=== PATIENT | male | born 1995 | race Caucasian/White ===

== ENCOUNTER 2022-09-12 11:59 | Emergency (ER) | payer BC, SELFPAY ==
--- NOTE | ~2022-09-12 | XR_ITS ---
EXAMINATION: XR HAND, RIGHT CLINICAL INFORMATION: Laceration COMPARISON: None TECHNIQUE: PA, lateral, and oblique views of the right hand. FINDINGS: The bones and soft tissues are normal. No fracture. Alignment is anatomic. Joint spaces are maintained. No erosions or soft tissue calcifications. XR/XR hand RT 2V IMPRESSION: No fracture. No radiopaque foreign body.
[2022-09-12 12:01] VITALS: BP 117/50; PULSE 100; RESP 20; TEMP 36.7; O2SAT 98; BMI 19.8
--- NOTE | 2022-09-12 12:53 | ED.WOUNDLAC ---
HPI - Wound/Laceration General Chief Complaint: Wound/Laceration Stated Complaint: R thumb lac 09/12/22 Time Seen by Provider: 09/12/22 12:50 Source: patient Mode of arrival: ambulatory Limitations: no limitations History of Present Illness HPI narrative: 27-year-old male [id number] here with laceration to the right thumb from a knife. Patient reports he was trying to open some plastic with his hand slipped causing a laceration to the right thumb. Patient has a history of insulin-dependent diabetes. Patient is right-hand dominant. He reports some pain to the site. No weakness, numbness or tingling reported. Tetanus is up-to-date Related Data Allergies Allergy/AdvReac Type Severity Reaction Status Date / Time Unable to Assess Allergy Verified 09/12/22 13:06 Review of Systems Review of Systems: Yes all other systems are reviewed and are negative Constitutional: Constitutional: Reports no additional constitutional complaints, Denies body ache(s), Denies chills, Denies fever(s), Denies headache(s) and Denies weakness Eyes: Eyes: Reports no additional eye complaints and Denies change in vision ENT: Reports system reviewed and no additional complaints, except as documented, Denies dizziness, Denies headache(s), Denies nasal congestion, Denies nasal discharge and Denies neck pain Cardiovascular: Cardiovascular: Reports no additional cardiovascular complaints, Denies chest pain, Denies leg edema and Denies dyspnea Respiratory: Respiratory: Reports no additional respiratory complaints, Denies cough and Denies dyspnea Gastrointestinal: Gastrointestinal: Reports no additional gastrointestinal complaints, Denies abdominal pain, Denies diarrhea, Denies nausea and Denies vomiting Genitourinary: Genitourinary: Denies urinary incontinence Musculoskeletal: Musculoskeletal: Reports no additional musculoskeletal complaints, Denies back pain, Denies arthralgias, Denies joint swelling, Denies neck pain, Denies numbness and Denies tingling Integumentary/Breasts: Skin/Breast: Reports system reviewed and no additional complaints, except as docu and Denies rash Comments: +laceration Neurologic: Reports system reviewed and no additional complaints, except as documented, Denies Abnormal speech present, Denies dizziness, Denies headache(s), Denies numbness, Denies tingling and Denies weakness PMF Past Medical History Attestation statement: The following information was validated with the patient. Source: old records reviewed and nursing notes reviewed Social History Social History Advance Directives: No Advance Directives Information Provided: Yes Physical Exam Vital Signs: Vital Signs: Last Vital Signs Temp 98.1 F 09/12/22 12:01 Pulse 100 09/12/22 12:01 Resp 20 09/12/22 12:01 BP 117/50 L 09/12/22 12:01 Pulse Ox 98 09/12/22 12:01 O2 Del Method 09/12/22 12:01 BMI result Body Mass Index 19.8 Const: General: cooperative, healthy appearing, comfortable and no acute distress Orientation/consciousness: patient oriented x3 Limitations: no limitations HEENT: Head: Yes normal to inspection Ears: hearing grossly normal bilaterally General nose exam: Normal external nose present Face and sinus: Yes normal facial exam Mouth: Normal oral and palatal mucosa present Throat: Yes posterior oropharynx normal Eyes: General: appearance normal, both eyes and all related structures Pupils: Equal, round and reactive pupils present Neck: Neck: Yes normal visual inspection Chest: Chest palpation & inspection: normal inspection of the chest Resp: Effort & Inspection: normal respiratory effort Auscultation: clear to auscultation bilaterally Cardio: Rate: regular rate Rhythm: regular rhythm Peripheral pulses: Peripheral pulses 2+ throughout GI: Inspection: Yes normal to inspection Palpation (GI): Soft to palpation and nontender Auscultation: normal bowel sounds Back/Spine/Pelvis: Thoracic/Lumbar Spine: thoracic and lumbar spine normal to inspection Skin: General skin exam: no rashes or lesions noted Neuro: General: patient oriented x3, no focal motor deficits and normal sensation to monofilament Cranial nerves: Yes Equal, round and reactive pupils present Cognition (Neuro): normal cognition Speech: No Abnormal speech present Gait exam (Neuro): Normal gait present Motor exam (neuro): 5/5 motor strength present throughout Extrem: Other: At the base of the right thumb over the medial aspect there is a 3 cm laceration with active bleeding. Patient is able flex and extend the thumb with no difficulty. Neurovascular intact distally. General: Yes normal to inspection Course Course Course Narrative: X-ray shows no bony abnormality. Wound was extensively irrigated with saline and Betadine. Patient had local lidocaine applied. The wound was repaired with [facility]. Bob Martinez Medications Administered Discontinued Medications Generic Name Dose Route Start Last Admin Trade Name Biju PRN Reason Stop Dose Admin Lidocaine HCl 2 ml 09/12/22 13:06 09/12/22 14:14 Lidocaine Hcl 1 % Mpf 2 Ml Vial INFILTRATI 09/12/22 13:07 2 ml ONCE ONE Administration Lidocaine HCl 2 ml 09/12/22 13:07 09/12/22 14:14 Lidocaine Hcl 1 % Mpf 2 Ml Vial INFILTRATI 09/12/22 13:08 2 ml ONCE ONE Administration MDM - Wound/Laceration MDM Narrative Medical decision making narrative: 27-year-old male [id number] here with laceration to the right thumb from a knife. See procedure note for wound repair tetanus is up-to-date Will check x-ray to eval for bony abnormality Medical Records Attestation: I reviewed the patient's medical records. Lab Data Attestation: I reviewed the patient's lab results. Imaging Data hand x-ray: Attestation: I personally reviewed and interpreted this imaging study as follows: Radiologist's impression: Launch?Image [place] [address] XRay Report Signed Patient: Timmy Douglas MR#: [id number] : 1995 Acct:[id number] Age/Sex: 27 / M ADM Date: 09/12/22 Loc: .ED Attending Dr: Ordering Physician: Radha Mcintosh NP Date of Service: 09/12/22 Procedure(s): XR hand RT 2V Accession Number(s): [id number] cc: Radha Mcintosh NP~ EXAMINATION: XR HAND, RIGHT CLINICAL INFORMATION: Laceration? COMPARISON: None? TECHNIQUE: PA, lateral, and oblique views of the right hand. FINDINGS: The bones and soft tissues are normal. No fracture. Alignment is anatomic. Joint spaces are maintained. No erosions or soft tissue calcifications.? XR/XR hand RT 2V IMPRESSION: No fracture. ? No radiopaque foreign body. Procedures Laceration Laceration 1: Site: hand Side (If applicable): right Size (cm): 3 Description: linear Depth: simple, single layer Local Anesthetic: lidocaine 1% Amount of anesthesia used (mL): 5 Pre-repair: wound explored, irrigated extensively and deep structures intact Skin layer closed with: vicryl Size (cm): 5-0 Number of sutures: 7 Technique: simple, interrupted Discharge Plan Discharge Clinical Impression: Laceration Patient Disposition: Home, Self-Care Instructions: Finger Laceration (ED) Additional Instructions: Sutures out in 7-10 days Keep it covered today. Tomorrow remove it and wash with soap and water Referrals: Physician,Nonstaff [Primary Care Provider] - Stand Alone Forms: Work/School Release Interventions: ED Discharge Assessment Last Done: 09/12/22 14:47 Discharge Date/Time: 09/12/22 14:48
--- OUTSIDE RECORDS SUMMARY | 2022-09-12 13:10 | XMS_ITS | Continuity of Care Document ---
:1995 Author Organization [facility] Address [address] [place] [address]- Care Team Providers Name Role Phone Daphnie Sheridan MD Primary Care Physician [place] [facility] [place] 06[place]20 [facility] [address] [place] [id number] [facility] Attending Physician: Latasha Lewis Admitting Physician: AdmLatasha piper Referring Physician: Admtr, ArJodran Allergies, Adverse Reactions, Alerts Substance Reaction Severity Status NKA Active Immunizations Given and Recorded Vaccine Date Status Refusal Reason influenza virus vaccine, inactivated1 07/19/13 Given 1Result Comment: [07/19/2013] Pt tolerated procedure well. L deltoid Medications Concerta 54 mg oral tablet, extended release 1 tablet = 54 mg, By Mouth, Daily in AM, NO SUBSTITUTIONS PLEASE; medically necessary brand name only; prior Rx in error, # 30 tablet, 0 Refills, Maintenance, 05/15/15 17:11:10, ER Tablet Start Date: 05/15/15 Stop Date: 06/14/15 Status: OrderedContour Next EZ Test Strips See Instructions, # 600 each, Refills 3, Tot. Refills 3, Maintenance, IDDM. Tests blood sugar 6x/day, 90 day supply, 12/31/19 14:02:00 EST, Compound, 183.4, cm, 08/23/19 15:15:00 EDT, Height, 74.1, kg,10/18/18 15:12:00 EST, Dry Weight Start Date: 12/31/19 Status: OrderedGlucagon Emergency Kit See Instructions, PRN, # 2 each, Refills 11, Tot. Refills 11, Maintenance, Blood Glucose, IDDM. Use emergently for severe low blood sugar, 08/29/17 15:09:17, Compound Start Date: 08/29/17 Stop Date: 08/24/18 Status: Orderedglucagon recombinant 1 mg injectable powder for injection See Instructions, DX: type 1 DM administer urgently for severe hypoglycemia, # 2 each, 11 Refills, Soft Stop, 04/15/16 16:13:01, REC Injection Start Date: 04/15/16 Status: OrderedHumalog 100 u/ml subcutaneous injection See Instructions, Subcutaneous Injection, Use as directed for Diabetes mellitus type 1. (Max Dose = 100 units/day). 10 mL vials, 90 day supply, # 9 vials, 3 Refills, Maintenance, 06/06/19 11:18:59 EDT Start Date: 06/06/19 Status: OrderedInsulin Syringe, BD Ultra-Fine 0.5 cc 31 G x 8 mm (516in) See Instructions, # 100 each, Refills 5, Tot. Refills 5, Maintenance, IDDM 2 times/daily, 04/28/18 12:25:48 EDT, Compound Start Date: 04/28/18 Status: OrderedInsulin Syringe, BD Ultra-Fine 0.5 cc 31 G x 8 mm (516in) See Instructions, # 120 each, Refills 3, Tot. Refills 3, Maintenance, Use to inject with insulin up to 4 times a day in the case of pump failure, E10.9, 01/09/20 10:55:00 EDT, Compound, 183.4, cm, 08/23/19 15:15:00 EDT, Height, 74.1, kg, 10/18/18 15:1... Start Date: 01/09/20 Status: OrderedKetostix See Instructions, # 1 bottle, Refills 6, Tot. Refills 6, Maintenance, use for t1dm, if hyperglycemia>300 check urine ketones. Max 4xdaily until cleared., 12/25/14 11:39:00, Compound Start Date: 12/25/14 Status: OrderedKetostix See Instructions, # 1 bottle, Refills 11, Tot. Refills 11, Maintenance, IDDM. Hyperglycemia >300 check urine ketones. Max 4xdaily until cleared., 08/29/17 15:08:53, Compound Start Date: 08/29/17 Status: OrderedLancets See Instructions, # 450 units, Refills 4, Tot. Refills 4, Maintenance, Contour Next, tests BS up to 5 times/d, 90 days, 04/15/16 16:13:35, Compound Start Date: 04/15/16 Status: OrderedLantus 100 u/ml subcutaneous solution See Instructions, type 1 diabetes. max dose 50 units/daily., # 2 each, 5 Refills, Maintenance, 04/28/18 12:24:50 EDT Start Date: 04/28/18 Status: Orderedminimed insulin pump minimed insulin pump, See Instructions, # 1 each, Refills 0, Tot. Refills 0, Maintenance, use daily,07/12/18 16:11:34 EDT, Compound Start Date: 07/12/18 Status: Orderedsertraline 25 mg oral tablet 1 tablet = 25 mg, By Mouth, Daily, # 30 tablet, 0 Refills, Maintenance, 05/24/19 16:51:47 EDT, Tablet Start Date: 05/24/19 Status: Ordered Problem List Condition Effective Dates Status Health Status Informant Anxiety(Confirmed) Active ADHD (attention deficit hyperactivity Active disorder)(Confirmed) Depression(Confirmed) Active Diabetes mellitus(Confirmed) Active Type 1 diabetes mellitus(Confirmed) Active Social History Social History Type Response Smoking Status Never smoker; Tobacco user i n household: No entered on: 08/29/17 Sex
--- OUTSIDE RECORDS SUMMARY | 2022-09-12 13:10 | XMS_ITS | Continuity of Care Document ---
:1995 Author Organization [facility] Address [address] [place] [id number]- Care Team Providers Name Role Phone Daphnie Sheridan MD Primary Care Physician Encounter [facility] [place] Date(s): 02/02/21 - 03/22/[address] [id number] Attending Physician: Suzanne Gilbert MD Admitting Physician: Suzanne Gilbert MD Referring Physician: Daphnie Sheridan MD Allergies, Adverse Reactions, Alerts Substance Reaction Severity Status NKA Active Immunizations Given and Recorded Vaccine Date Status Refusal Reason influenza virus vaccine, inactivated1 07/19/13 Given 1Result Comment: [07/19/2013] Pt tolerated procedure well. L deltoid Medications ACCU-CHEK GUIDE TEST STRIPS ACCU-CHEK GUIDE TEST STRIPS, See Instructions, # 200 each, Refills 11, Tot. Refills 11, Maintenance,Use to monitor blood glucose levels 6x per day. E10.9, 03/19/21 10:02:00 EDT, [place] 03/11/21-03/11/22; [id number], Supply, 183.4, cm, 01/24/20 14:38:00 ED... Start Date: 03/19/21 Status: OrderedBaqsimi One Pack 3 mg nasal powder See Instructions, Use as directed, 3 mg for severe hypoglycemia., # 1 each, 6 Refills, Soft Stop, 02/18/21 13:15:00 EDT, [facility]/pharmacy #[id number], Partial fill upon patient request if the prescription is fora schedule II opioid drug., 183.4, cm, 01/24/20 1... Start Date: 02/18/21 Status: OrderedConcerta 54 mg oral tablet, extended release 1 tablet = 54 mg, By Mouth, Daily in AM, NO SUBSTITUTIONS PLEASE; medically necessary brand name only; prior Rx in error, # 30 tablet, 0 Refills, Maintenance, 05/15/15 17:11:10, ER Tablet Start Date: 05/15/15 Stop Date: 06/14/15 Status: OrderedGlucagon Emergency Kit See Instructions, PRN, # 2 each, Refills 11, Tot. Refills 11, Maintenance, Blood Glucose, Use emergently for severe low blood sugar and patient unable to treat self, E10.9, 11/27/20 8:57:00 EST, Compound, 183.4, cm, 01/24/20 14:38:00 EDT, Height Start Date: 11/27/20 Stop Date: 11/22/21 Status: OrderedHumalog 100 u/ml subcutaneous injection See Instructions, Subcutaneous Injection, Use as directed for Diabetes mellitus type 1. (Max Dose = 100 units/day). 90 day supply, # 105 mL, 3 Refills, Maintenance, 11/27/20 8:56:00 EST, [facility]/pharmacy #[id number], 183.4, cm, 01/24/20 14:38:00 EDT, Height Start Date: 11/27/20 Status: OrderedInsulin Syringe, BD Ultra-Fine 0.5 cc 31 G x 8 mm (5/16in) See Instructions, # 120 each, Refills 3, Tot. Refills 3, Maintenance, Use to inject with insulin up to 4 times a day in the case of pump failure, E10.9, 01/09/20 10:55:00 EDT, Compound, 183.4, cm, 08/23/19 15:15:00 EDT, Height, 74.1, kg, 10/18/18 15:1... Start Date: 01/09/20 Status: OrderedInsulin Syringe, BD Ultra-Fine 0.5 cc 31 G x 8 mm (516in) See Instructions, # 100 each, Refills 5, Tot. Refills 5, Maintenance, IDDM 2 times/daily, 04/28/18 12:25:48 EDT, Compound Start Date: 04/28/18 Status: OrderedKetostix See Instructions, # 1 bottle, Refills 11, Tot. Refills 11, Maintenance, IDDM. Hyperglycemia >300 check urine ketones. Max 4xdaily until cleared., 08/29/17 15:08:53, Compound Start Date: 08/29/17 Status: OrderedLancets See Instructions, # 450 units, Refills 4, Tot. Refills 4, Maintenance, Contour Next, tests BS up to 5 times/d, 90 days, 04/15/16 16:13:35, Compound Start Date: 04/15/16 Status: OrderedLantus Solostar Pen 100 units/mL subcutaneous solution = 38 units, Subcutaneous Infusion, Daily, E10.9, # 30 mL, 6 Refills, Maintenance, 11/27/20 8:41:00 EST, [facility]/pharmacy #[id number], Partial fill upon patient request if the prescription is for a schedule II opioid drug., 183.4, cm, 01/24/20 14:38:00 EDT, Height Start Date: 11/27/20 Status: Orderedminimed insulin pump minimed insulin pump, See Instructions, # 1 each, Refills 0, Tot. Refills 0, Maintenance, use daily,07/12/18 16:11:34 EDT, Compound Start Date: 07/12/18 Status: OrderedNovoLOG 100 units/mL injectable solution See Instructions, Infuse up to 100 units via insulin pump per day, E10.9 90 Day Supply, # 100 mL, 3 Refills, Maintenance, 11/27/20 15:35:00 EST, [facility]/pharmacy #[id number], Partial fill upon patient request ifthe prescription is for a schedule II opioid drug... Start Date: 11/27/20 Status: OrderedPen [place], 31 G x 5 mm BD Ultra Fine III See Instructions, # 30 each, Refills 6, Tot. Refills 6, Maintenance, Use to inject with insulin oncedaily, E10.9, 11/27/20 8:41:00 EST, Supply, 183.4, cm, 01/24/20 14:38:00 EDT, Height Start Date: 11/27/20 Status: Orderedsertraline 25 mg oral tablet 1 [...]
--- OUTSIDE RECORDS SUMMARY | 2022-09-12 13:10 | XMS_ITS | Continuity of Care Document ---
:1995 Author Organization [facility] Address [address] [place] [address]- Care Team Providers Name Role Phone Daphnie Sheridan MD Primary Care Physician [place] [facility] [place] [facility] [address] [place] [id number] Allergies, Adverse Reactions, Alerts Substance Reaction Severity [...] day. E10.9, 03/19/21 10:02:00 EDT, [place] 03/11/21-03/11/22; [id number], Supply, 183.4, cm, 01/24/20 14:38:00 ED... Start Date: 03/19/21 Status: OrderedBaqsimi One Pack 3 mg nasal powder See Instructions, Use as directed, 3 mg for severe hypoglycemia., # 1 each, 6 Refills, Soft Stop, 02/18/21 13:15:00 EDT, [id number], Partial fill upon patient request if [...] x 8 mm (5/16in) See Instructions, # 100 each, Refills 5, [...] mL, 6 Refills, Maintenance, 11/27/20 8:41:00 EST, [facility] [place]/pharmacy #[id number], Partial fill upon patient request if [...] mL, 3 Refills, Maintenance, 11/27/20 15:35:00 EST, [facility] [place]pharmacy [facility][id number], Partial fill upon patient request ifthe prescription is for a schedule II opioid drug... Start Date: 11/27/20 Status: OrderedPen [place], 31 G x 5 mm BD Ultra [...]
--- OUTSIDE RECORDS SUMMARY | 2022-09-12 13:10 | XMS_ITS | Continuity of Care Document ---
:1995 Author Organization [facility] Address [address] [place] [address]- Care Team Providers Name Role Phone Daphnie Sheridan MD Primary Care Physician [place] [facility] [place] [facility] [address] [place] [id number] Attending Physician: Maria R Powers MD Referring Physician: Daphnie Sheridan MD Allergies, Adverse Reactions, Alerts No Known Allergies Immunizations Given and Recorded Vaccine Date Status Refusal Reason influenza virus vaccine, inactivated1 07/19/13 Given 1Result Comment: [07/19/2013] Pt tolerated procedure well. L deltoid Medications Accu-Chek Compact Lancets See Instructions, # 250 each, Refills 11, Tot. Refills 11, Maintenance, use to test sugar 8x daily E10.9 30 day, 08/19/21 13:08:00 EDT, Supply, 186, cm, 05/06/21 9:20:00 EDT, Height, 78.3, kg, :20:00 EDT, Dry Weight Start Date: 08/19/21 Status: OrderedACCU-CHEK GUIDE TEST STRIPS ACCU-CHEK GUIDE TEST STRIPS, See Instructions, # 750 each, Refills 3, Tot. Refills 3, Maintenance, Use to monitor blood glucose levels 8x per day. E10.9 90 day, 08/19/21 13:08:00 EDT, [place] 03/11/21-03/11/22; [id number], Supply, 186, cm, 05/06/21 9:20:00... Start Date: 08/19/21 Status: OrderedBaqsimi One Pack 3 mg nasal powder See Instructions, Use as directed, 3 mg for severe hypoglycemia., # 1 each, 6 Refills, Soft Stop, 02/18/21 13:15:00 EDT, [facility]/pharmacy #1230, Partial fill upon patient request if [...] Start Date: 05/15/15 Stop Date: 06/14/15 Status: OrderedEpiPen 2-Sergo 0.3 mg injectable kit = 0.3 mg, Intramuscular, Once, # 1 kit, 0 Refills, Soft Stop, 05/06/21 10:22:00 EDT, [facility]/pharmacy #1230, Partial fill upon patient request if the prescription is for a schedule II opioid drug., 186, cm, 05/06/21 9:20:00 EDT, Height, 78.3, kg, 05/06/21... Start Date: 05/06/21 Status: OrderedGlucagon Emergency Kit See Instructions, PRN, [...] mL, 3 Refills, Maintenance, 11/27/20 8:56:00 EST, [facility]/pharmacy #1230, 183.4, cm, 01/24/20 14:38:00 EDT, Height [...] 04/28/18 Status: OrderedKetostix See Instructions, # 1 each, Refills 11, Tot. Refills 11, Maintenance, IDDM. Hyperglycemia >300 check urine ketones. Max 4xdaily until cleared., 01/07/22 16:23:00 EST, Compound, 186, cm, 01/07/22 16:03:00 EST, Height, 78.3, kg, 05/06/21 9:20:00 EDT, . Start Date: 01/07/22 Status: OrderedLancets See Instructions, # 450 units, Refills 4, Tot. Refills 4, Maintenance, Contour Next, tests BS up to 5 times/d, 90 days, 04/15/16 16:13:35, Compound Start Date: 04/15/16 Status: OrderedLantus Solostar Pen 100 units/mL subcutaneous solution = 38 units, Subcutaneous Infusion, Daily, E10.9, # 30 mL, 6 Refills, Maintenance, 11/27/20 8:41:00 EST, [facility]/pharmacy #[id number], Partial fill upon patient request if [...] Supply, # 100 mL, 3 Refills, Maintenance, 08/19/21 13:10:00 EDT, [facility]/pharmacy #1230, Partial fill upon patient request ifthe prescription is for a schedule II opioid drug... Start Date: 08/19/21 Status: OrderedPen [place], 31 G x 5 mm BD Ultra [...] mellitus(Confirmed) Active Type 1 diabetes mellitus(Confirmed) Active Vital Signs Most recent to oldest [Reference Range]: 1 Height 186 cm (01/07/22 4:03 PM) Weight 78.0 kg (01/07/22 4:03 PM) Oxygen Saturation [94-100 %] 99 % (01/07/22 4:03 PM) Pulse Rate [55-90 bpm] 95 bpm *H* (01/07/22 4:03 PM) Body Mass Index [18.5-24.99] 22.55 (01/07/22 4:03 PM) Blood Pressure [90-138/55-84 mm Hg] 131/74 mm Hg (01/07/22 4:03 PM) Temperature [96.8-100.4 DegF] 98.5 DegF (01/07/22 4:03 PM) Blood pressure sites Arm, right (01/07/22 4:03 PM) Temperature Route Oral (01/07/22 4:03 PM) Social History Social History Type Response Smoking Status Never smoker; Tobacco user i n household: No entered on: 08/29/17 Sex
--- OUTSIDE RECORDS SUMMARY | 2022-09-12 13:11 | XMS_ITS | Continuity of Care Document ---
:1994 Author Organization [facility] Address [address] [place] [address]- Care Team Providers Name Role Phone Cindy KENDALL, Aileen Rivero Primary Care Physician [place] [facility] [place] 08[place]14/22 [facility] Endocrinology and Diabetes [address] [place] [id number] Allergies, Adverse Reactions, Alerts No Known Allergies Immunizations Given and Recorded Vaccine Date Status Refusal Reason influenza virus vaccine, inactivated1 07/19/13 Given 1Result Comment: [07/19/2013] Pt tolerated procedure well. L deltoid Medications Accu-Chek Compact Lancets See Instructions, # 250 each, Refills 5, Tot. Refills 5, Maintenance, use to test sugar 8x daily E10.9 30 day, 06/28/22 9:21:00 EDT, Supply, 186, cm, 04/15/22 15:55:00 EDT, Height, 78.3, kg, 05/06/21 9:20:00 EDT, Dry Weight Start Date: 06/28/22 Status: OrderedACCU-CHEK GUIDE TEST STRIPS ACCU-CHEK GUIDE TEST STRIPS, See Instructions, # 750 each, Refills 5, Tot. Refills 5, Maintenance, Use to monitor blood glucose levels 8x per day. E10.9 90 day, 06/28/22 9:20:00 EDT, PA 03/11/21-03/11/22; [id number], Supply, 186, cm, 04/15/22 15:55:00... Start Date: 06/28/22 Status: OrderedBaqsimi One Pack 3 mg nasal powder See Instructions, Use as directed, 3 mg for severe hypoglycemia., # 1 each, 6 Refills, Soft Stop, 02/18/21 13:15:00 EDT, [id number], Partial fill upon patient request if the prescription is fora schedule II opioid drug., 183.4, cm, 01/24/20 1... Start Date: 02/18/21 Status: OrderedConcerta 54 mg oral tablet, extended release 1 tablet = 54 mg, By Mouth, Daily in AM, Fill on or after 07/31/22, # 28 tablet, 0 Refills, Maintenance, 07/26/22 11:30:00 EDT, ER Tablet, [facility]/pharmacy #1230, 186, cm, 07/15/22 10:38:00 EDT, Height, 78.3, kg, 05/06/21 9:20:00 EDT, Dry Weight Start Date: 07/26/22 Stop Date: 07/26/30 Status: OrderedContour Next EZ Glucometer See Instructions, # 1 each, Refills 0, Tot. Refills 0, Maintenance, use as directed for Type 1 Diabetes Mellitus, 07/27/22 10:20:00 EDT, Supply, 186, cm, 07/27/22 9:38:00 EDT, Height, 78.3, kg, 05/06/21 9:20:00 EDT, Dry Weight Start Date: 07/27/22 Status: OrderedContour Next EZ Test Strips See Instructions, # 200 each, Refills 6, Tot. Refills 6, Maintenance, use as directed for Type 1 Diabetes Mellitus for 3-4 blood sugar checks per day E10.9, 07/27/22 10:20:00 EDT, Supply, 186, cm, 07/27/22 9:38:00 EDT, Height, 78.3, kg, 05/06/21 9:... Start Date: 07/27/22 Status: OrderedEpiPen 2-Sergo 0.3 mg injectable kit = 0.3 mg, Intramuscular, Once, # 1 kit, 0 Refills, Soft Stop, 05/06/21 10:22:00 EDT, [facility]/pharmacy #[id number], Partial fill upon patient request if [...] Start Date: 11/27/20 Stop Date: 11/22/21 Status: OrderedInsulin Syringe, BD Ultra-Fine 0.5 cc 31 G x 8 mm (16in) See Instructions, # 120 each, Refills 3, Tot. Refills 3, Maintenance, Use to inject with insulin up to 4 times a day in the case of pump failure, E10.9, 01/09/20 10:55:00 EDT, Compound, 183.4, cm, 08/23/19 15:15:00 EDT, Height, 74.1, kg, 10/18/18 15:1... Start Date: 01/09/20 Status: OrderedInsulin Syringe, BD Ultra-Fine 0.5 cc 31 G x 8 mm (16in) See Instructions, # 100 each, Refills 5, [...] 04/15/16 16:13:35, Compound Start Date: 04/15/16 Status: Orderedminimed insulin pump minimed insulin pump, See Instructions, # 1 each, Refills 0, Tot. Refills 0, Maintenance, use daily,07/12/18 16:11:34 EDT, Compound Start Date: 07/12/18 Status: OrderedNovoLOG 100 units/mL injectable solution See Instructions, Infuse up to 100 units via insulin pump per day, E10.9 90 Day Supply, # 100 mL, 3 Refills, Maintenance, 08/19/21 13:10:00 EDT, [facility]/pharmacy #[id number], Partial fill upon patient request ifthe prescription is for a schedule II opioid drug... Start Date: 08/19/21 Status: OrderedPen [place], 31 G x 5 mm BD Ultra Fine III See Instructions, # 30 each, Refills 6, Tot. Refills 6, Maintenance, Use to inject with insulin oncedaily, E10.9, 11/27/20 8:41:00 EST, Supply, 183.4, cm, 01/24/20 14:38:00 EDT, Height Start Date: 11/27/20 Status: OrderedSemglee (Prefilled Pen) 100 units/mL subcutaneous solution See Instructions, e10.9, use if needed for failed pump, 38 units subcutaneous injection once daily, 30 day supply, # 30 mL, 5 Refills, Maintenance, 07/21/22 13:40:00 EDT, [id number], Partial fill upon patient request if the prescription is for... Start Date: 07/21/22 Status: OrderedSoft Touch Lancets See Instructions, # 200 each, Refills 5, Tot. Refills 5, Maintenance, use as directed for Type 1 Diabetes Mellitus for 3-4 blood sugar checks per day E10.9, 07/27/22 10:20:00 EDT, Supply, 186, cm, 07/27/22 9:38:00 EDT, Height, 78.3, kg, 05/06/21 9:... Start Date: 07/27/22 Stop Date: 01/23/23 Status: Ordered Problem List Condition Confirmation Course Effective Dates Status Health I nformant Status Anxiety Confirmed Active ADHD (attention Confirmed Active deficit hyperactivity disorder) Depression Confirmed Active Diabetes mellitus Confirmed Active Type 1 diabetes Confirmed Active mellitus Social History Social History Type Response Smoking Status Never smoker; Tobacco user i n household: No entered on: 08/29/17 Sex Patient Care team information PersonnelName: Aileen White MD Address: Address: [address] [place] [address] [place] [address]-
--- OUTSIDE RECORDS SUMMARY | 2022-09-12 13:11 | XMS_ITS | Continuity of Care Document ---
:1994 Author Organization [facility] Endocrinology and D [facility] Address [address] [place] [address]- Care Team Providers Name Role Phone Daphnie Sheridan MD Primary Care Physician [place] [facility] [place](s): 01/24/20 - 01/31/20 [facility] Endocrinology and Diabetes [address] [place] [id number]- [facility] Attending Physician: Maria R Powers MD Referring [...] recent to oldest [Reference Range]: 1 Height 183.4 cm (01/24/20 2:38 PM) Weight 68.9 kg (01/24/20 2:38 PM) Pulse Rate [55-90 bpm] 88 bpm (01/24/20 2:38 PM) Body Mass Index [18.5-24.99] 20.48 (01/24/20 2:38 PM) Blood Pressure [90-138/55-84 mm Hg] 132/79 mm Hg (01/24/20 2:38 PM) Mode of Delivery (Oxygen) Room air (01/24/20 2:38 PM) Blood pressure sites Arm, right (01/24/20 2:38 PM) Social History Social History Type Response Smoking Status Never smoker; Tobacco user i n household: No entered on: 08/29/17 Sex
--- OUTSIDE RECORDS SUMMARY | 2022-09-12 13:11 | XMS_ITS | Continuity of Care Document ---
:1994 Author Organization [facility] Address [address] [place] [address]- Care Team Providers Name Role Phone Daphnie Sheridan MD Primary Care Physician [place] [facility] 03[place]11[place]21 - 04/10/21 [facility] Endocrinology and Diabetes [address] [place] [id number] Allergies, Adverse Reactions, Alerts Substance Reaction [...] day. E10.9, 03/19/21 10:02:00 EDT, PA 03/11/21-03/11/22; [id number], Supply, 183.4, cm, 01/24/20 14:38:00 ED... Start Date: 03/19/21 Status: OrderedBaqsimi One Pack 3 mg nasal powder See Instructions, Use as directed, 3 mg for severe hypoglycemia., # 1 each, 6 Refills, Soft Stop, 02/18/21 13:15:00 EDT, [facility]/pharmacy #[id number], Partial fill upon patient request if [...] mL, 6 Refills, Maintenance, 11/27/20 8:41:00 EST, [facility]/pharmacy #1230, Partial fill upon patient request if [...] mL, 3 Refills, Maintenance, 11/27/20 15:35:00 EST, [facility]/pharmacy #1230, Partial fill upon patient request ifthe prescription is for a schedule II opioid drug... Start Date: 11/27/20 Status: OrderedPen [place], 31 G x 5 mm BD Ultra [...]
--- OUTSIDE RECORDS SUMMARY | 2022-09-12 13:11 | XMS_ITS | Continuity of Care Document ---
:1994 Author Organization [facility] Address [address] [place] [id number]- Care Team Providers Name Role Phone Daphnie Sheridan MD Primary Care Physician Encounter [facility] [place] Date(s): 02/20/21 - 03/22/[address] [address] Attending Physician: AdmtrLatasha Admitting Physician: [id number] Referring Physician: Admtr, Ar8 Allergies, Adverse Reactions, Alerts Substance Reaction Severity [...] day. E10.9, 03/19/21 10:02:00 EDT, PA 03/11/21-03/11/22; [id number], Supply, 183.4, cm, 01/24/20 14:38:00 ED... Start Date: 03/19/21 Status: OrderedBaqsimi One Pack 3 mg nasal powder See Instructions, Use as directed, 3 mg for severe hypoglycemia., # 1 each, 6 Refills, Soft Stop, 02/18/21 13:15:00 EDT, [facility]/pharmacy #1230, Partial fill upon patient request if [...] mL, 3 Refills, Maintenance, 11/27/20 8:56:00 EST, [facility]/pharmacy #1230, 183.4, cm, 01/24/20 14:38:00 EDT, Height [...] mL, 6 Refills, Maintenance, 11/27/20 8:41:00 EST, [facility]/pharmacy #1230, Partial fill upon patient request if [...] mL, 3 Refills, Maintenance, 11/27/20 15:35:00 EST, [facility]/pharmacy #1230, Partial fill upon patient request ifthe prescription is for a schedule II opioid drug... Start Date: 11/27/20 Status: OrderedPen [place], 31 G x 5 mm BD Ultra [...]
--- OUTSIDE RECORDS SUMMARY | 2022-09-12 13:11 | XMS_ITS | Continuity of Care Document ---
:1994 Author Organization [facility] Address [address] [place] [address]- Care Team Providers Name Role Phone Aileen White MD Primary Care Physician [place] [facility] [place]22 - 08/27/[address] [address] Attending Physician: AdmtrLatasha Admitting Physician: Admtr, Latasha Referring Physician: Admtr, Ar8 Allergies, Adverse Reactions, Alerts No Known Allergies [...] 90 day, 06/28/22 9:20:00 EDT, PA 03/11/21-03/11/22; [id number], Supply, 186, cm, 04/15/22 15:55:00... Start Date: 06/28/22 Status: OrderedBaqsimi One Pack 3 mg nasal powder See Instructions, Use as directed, 3 mg for severe hypoglycemia., # 1 each, 6 Refills, Soft Stop, 02/18/21 13:15:00 EDT, [facility]/pharmacy #1230, Partial fill upon patient request if the prescription is fora schedule II opioid drug., 183.4, cm, 01/24/20 1... Start Date: 02/18/21 Status: OrderedConcerta 54 mg oral tablet, extended release 1 tablet = 54 mg, By Mouth, Daily in AM, Fill on or after 08/27/22, # 28 tablet, 0 Refills, Maintenance, 08/23/22 10:06:00 EDT, ER Tablet, [facility]/pharmacy #1230, 186, cm, 07/27/22 9:38:00 EDT, Height, 78.3, kg, 05/06/21 9:20:00 EDT, Dry Weight Start Date: 08/23/22 Status: OrderedConcerta 54 mg oral tablet, extended release 1 tablet = 54 mg, By Mouth, Daily in AM, Fill on or after 07/31/22, # 28 tablet, 0 Refills, Hard Stop07/26/30 7:00:00 EDT, 07/26/22 11:30:00 EDT, [facility] Tablet, [facility] 186, cm, 07/15/22 10:38:00 EDT, Height, 78.3, kg, 05/06/21 9:20:00 EDT, Start Date: 07/26/22 Stop Date: 07/26/30 Status: [...] 0 Refills, Soft Stop, 05/06/21 10:22:00 EDT, [facility]/pharmacy #1230, Partial fill upon patient request [...] mL, 3 Refills, Maintenance, 08/19/21 13:10:00 EDT, [facility]/pharmacy #1230, Partial fill upon patient request ifthe prescription is for a schedule II opioid drug... Start Date: 08/19/21 Status: OrderedPen [place], 31 G x 5 mm BD Ultra [...] 08/29/17 Sex Patient Care team information PersonnelName: Cindy KENDALL, Aileen Rivero Address: Address: [address] [place] [address] Adult [place], [place] [address]
--- OUTSIDE RECORDS SUMMARY | 2022-09-12 13:11 | XMS_ITS | Continuity of Care Document ---
:1994 Author Organization [facility] Address [address] [place] [address]- Care Team Providers Name Role Phone Cindy KENDALL, Aileen Rivero Primary Care Physician Encounter [facility] [place] Date(s): 06/28/22 - 07/28/22 [facility] Endocrinology and Diabetes [address] [place] [id number] Allergies, Adverse Reactions, Alerts No Known Allergies [...] 90 day, 06/28/22 9:20:00 EDT, PA 03/11/21-03/11/22; [id number], Supply, 186, cm, 04/15/22 15:55:00... Start Date: [...] Refills, Maintenance, 07/26/22 11:30:00 EDT, ER Tablet, [facility]/pharmacy #1230, 186, cm, 07/15/22 10:38:00 EDT, Height, [...] 0 Refills, Soft Stop, 05/06/21 10:22:00 EDT, [facility]/pharmacy #1230, Partial fill upon patient request [...] mL, 3 Refills, Maintenance, 08/19/21 13:10:00 EDT, [facility]/pharmacy #1230, Partial fill upon patient request ifthe prescription is for a schedule II opioid drug... Start Date: 08/19/21 Status: OrderedPen [place], 31 G x 5 mm BD Ultra [...] information PersonnelName: Aileen White MD Address: Address: [address] [place] [address] [place] [address]-
--- OUTSIDE RECORDS SUMMARY | 2022-09-12 13:11 | XMS_ITS | Continuity of Care Document ---
:1994 Author Organization [facility] Endocrinology and D [facility]l Address [address] [place] [address]- Care Team Providers Name Role Phone Daphnie Sheridan MD Primary Care Physician Encounter [facility] [place] Date(s): 01/30/21 - 05/30/21 [facility] Endocrinology and Diabetes [address] [place] [id number] Attending Physician: Maria R Powers MD Referring Physician: Daphnie Sheridan MD Allergies, Adverse Reactions, Alerts Substance Reaction Severity Status NKA Active Immunizations Given and Recorded Vaccine Date Status Refusal Reason influenza virus vaccine, inactivated1 07/19/13 Given 1Result Comment: [07/19/2013] Pt tolerated procedure well. L deltoid Medications Accu-Chek Compact Lancets See Instructions, # 400 each, Refills 3, Tot. Refills 3, Maintenance, use to test sugar 4x daily E10.9 90 day, 05/26/21 16:26:00 EDT, Supply, 186, cm, 05/06/21 9:20:00 EDT, Height, 78.3, kg, 05/06/21 9:20:00 EDT, Dry Weight Start Date: 05/26/21 Status: OrderedACCU-CHEK GUIDE TEST STRIPS ACCU-CHEK GUIDE TEST STRIPS, See Instructions, # 200 each, Refills 11, Tot. Refills 11, Maintenance,Use to monitor blood glucose levels 6x per day. E10.9, 03/19/21 10:02:00 EDT, PA 03/11/21-03/11/22; [id number], Supply, 183.4, cm, 01/24/20 14:38:00 ED... Start Date: 03/19/21 Status: OrderedBaqsimi One Pack 3 mg nasal powder See Instructions, Use as directed, 3 mg for severe hypoglycemia., # 1 each, 6 Refills, Soft Stop, 02/18/21 13:15:00 EDT, [facility]/pharmacy #1230, Partial fill upon patient request [...] 0 Refills, Soft Stop, 05/06/21 10:22:00 EDT, [facility]/pharmacy #1230, Partial fill upon patient request [...] mL, 3 Refills, Maintenance, 11/27/20 8:56:00 EST, [facility]/pharmacy #1230, 183.4, cm, 01/24/20 14:38:00 EDT, Height [...] mL, 6 Refills, Maintenance, 11/27/20 8:41:00 EST, [facility]/pharmacy #1230, Partial fill upon patient request [...] mL, 3 Refills, Maintenance, 11/27/20 15:35:00 EST, [facility]/pharmacy #1230, Partial fill upon patient request ifthe prescription is for a schedule II opioid drug... Start Date: 11/27/20 Status: OrderedPen [place], 31 G x 5 mm BD Ultra [...]
--- OUTSIDE RECORDS SUMMARY | 2022-09-12 13:11 | XMS_ITS | Continuity of Care Document ---
:1994 Author Organization [facility] Address [address] [place] [address]- Care Team Providers Name Role Phone Daphnie Sheridan MD Primary Care Physician En[place] [facility] [place] Date(s): 05/06/21 - 05/06/[address] [address]- Discharge Disposition: A-D/C Home Attending Physician: Pat Aldana MD Admitting Physician: Pat Aldana MD Referring Physician: Not on Staff, Referring MD Allergies, Adverse Reactions, Alerts Substance Reaction [...] day. E10.9, 03/19/21 10:02:00 EDT, PA 03/11/21-03/11/22; [id number], Supply, 183.4, cm, 01/24/20 14:38:00 ED... Start Date: 03/19/21 Status: OrderedBaqsimi One Pack 3 mg nasal powder See Instructions, Use as directed, 3 mg for severe hypoglycemia., # 1 each, 6 Refills, Soft Stop, 02/18/21 13:15:00 EDT, [facility]/pharmacy #1230, Partial fill upon patient request if [...] 0 Refills, Soft Stop, 05/06/21 10:22:00 EDT, [facility]/pharmacy #1230, Partial fill upon patient request if [...] mL, 3 Refills, Maintenance, 11/27/20 8:56:00 EST, [facility]/pharmacy #1230, 183.4, cm, 01/24/20 14:38:00 EDT, Height [...] mL, 6 Refills, Maintenance, 11/27/20 8:41:00 EST, [facility]/pharmacy #1230, Partial fill upon patient request if [...] mL, 3 Refills, Maintenance, 11/27/20 15:35:00 EST, [facility]/pharmacy #1230, Partial fill upon patient request ifthe prescription is for a schedule II opioid drug... Start Date: 11/27/20 Status: OrderedPen [place], 31 G x 5 mm BD Ultra [...] Vital Signs Most recent to oldest [Reference 1 2 3 Range]: Height 186 cm (05/06/21 9:20 AM) Weight 78.3 kg (05/06/21 9:20 AM) Oxygen Saturation [94-100 %] 99 % 100 % 100 % (05/06/21 10:06 AM) (05/06/21 9:39 AM) (05/06/21 9:20 AM) Pulse Rate [55-90 bpm] 97 bpm 100 bpm 112 bpm *H* *H* *H* (05/06/21 10:06 AM) (05/06/21 9:39 AM) (05/06/21 9:20 AM) Body Mass Index [18.5-24.99] 22.63 (05/06/21 9:20 AM) Blood Pressure [90-138/55-84 mm 126/90 mm Hg 145/103 mm Hg 152/100 mm Hg Hg] (05/06/21 10:06 AM) *H* *H* (05/06/21 9:39 AM) (05/06/21 9:20 AM ) Respiratory Rate [16-30 br/min] 20 br/min 21 br/min 18 br/min (05/06/21 10:06 AM) (05/06/21 9:39 AM) (05/06/21 9:20 AM) Temperature [96.8-100.4 DegF] 98.5 DegF (05/06/21 9:20 AM) Mode of Delivery (Oxygen) Room air (05/06/21 9:20 AM) Blood pressure sites Arm, right (05/06/21 9:20 AM) Temperature Route Oral (05/06/21 9:20 AM) Dry Weight 78.3 kg (05/06/21 9:20 AM) Weight Obtained Via Standing scale (05/06/21 9:20 AM) Dry Weight Obtained Via Standing scale (05/06/21 9:20 AM) Social History Social History Type Response Smoking Status Never smoker; Tobacco user i n household: No entered on: 08/29/17 Sex
--- OUTSIDE RECORDS SUMMARY | 2022-09-12 13:11 | XMS_ITS | Continuity of Care Document ---
:1994 Author Organization [facility] Endocrinology and D [facility] Address [address] [place] [address]- Care Team Providers Name Role Phone Daphnie Sheridan MD Primary Care Physician [place]counter [facility] [place] Date(s): 11/12/19 - 11/22/19 [facility] Endocrinology and Diabetes [address] [place] [phone] [facility] Attending Physician: Latasha Lewis Admitting Physician: AdmtrLatasha Referring Physician: AdmtrLatasha Allergies, Adverse Reactions, Alerts Substance Reaction Severity [...] EZ Test Strips See Instructions, # 600 strip(s), Refills 3, Tot. Refills 3, Maintenance, IDDM. Tests blood sugar 6x/day, 90 day supply, 04/28/18 11:25:12 EDT, Compound Start Date: 04/28/18 Status: OrderedGlucagon Emergency Kit See Instructions, PRN, [...]
--- OUTSIDE RECORDS SUMMARY | 2022-09-12 13:11 | XMS_ITS | Continuity of Care Document ---
:1994 Author Organization [facility] Endocrinology and D chel Address [address] [place] [address]- Care Team Providers Name Role Phone Daphnie Sheridan MD Primary Care Physician Encounter [facility] Date(s): 11/27/20 - 12/27/20 [facility] Endocrinology and Diabetes [address] [place] [address] Allergies, Adverse Reactions, Alerts Substance Reaction [...] Start Date: 11/27/20 Stop Date: 11/22/21 Status: Orderedglucagon recombinant 1 mg injectable powder [...] 04/28/18 12:24:50 EDT Start Date: 04/28/18 Status: OrderedLantus Solostar Pen 100 units/mL subcutaneous solution = 35 units, Subcutaneous Infusion, Daily, E10.9, # 30 [...] opioid drug... Start Date: 11/27/20 Status: OrderedPen [place], 31 G x 5 mm BD Ultra [...]
--- OUTSIDE RECORDS SUMMARY | 2022-09-12 13:11 | XMS_ITS | Continuity of Care Document ---
:1994 Author Organization [facility] Address [address] [id number]- Care Team Providers Name Role Phone Aileen White MD Primary Care Physician [id number] Date(s): 07/15/22 - 07/22/22 [facility] [address] [place] [address]- Attending Physician: Aileen White MD Allergies, Adverse Reactions, Alerts No Known [...] 90 day, 06/28/22 9:20:00 EDT, PA 03/11/21-03/11/22; [id number], Supply, 186, cm, 04/15/22 15:55:00... Start Date: [...] 0 Refills, Soft Stop, 05/06/21 10:22:00 EDT, [facility]/pharmacy #1230, Partial fill upon patient [...] EST, Height, 78.3, kg, 05/06/21 9:20:00 EDT, Start Date: 01/07/22 Status: OrderedLancets See Instructions, [...] mL, 3 Refills, Maintenance, 08/19/21 13:10:00 EDT, [facility]/pharmacy #1230, Partial fill upon patient request ifthe prescription is for a schedule II opioid drug... Start Date: 08/19/21 Status: OrderedPen [place], 31 G x 5 mm BD Ultra [...] prescription is for... Start Date: 07/21/22 Status: Ordered Problem List Condition Effective Dates Status Health Status Informant Anxiety(Confirmed) Active ADHD (attention deficit hyperactivity Active disorder)(Confirmed) Depression(Confirmed) Active Diabetes mellitus(Confirmed) Active Type 1 diabetes mellitus(Confirmed) Active Vital Signs Most recent to oldest [Reference Range]: 1 Height 186 cm (07/15/22 10:38 AM) Weight 75.5 kg (07/15/22 10:38 AM) Oxygen Saturation [94-100 %] 98 % (07/15/22 10:38 AM) Pulse Rate [55-90 bpm] 73 bpm (07/15/22 10:38 AM) Body Mass Index [18.5-24.99] 21.82 (07/15/22 10:38 AM) Blood Pressure [90-138/55-84 mm Hg] 126/78 mm Hg (07/15/22 10:38 AM) Temperature [96.8-100.4 DegF] 97.8 DegF (07/15/22 10:38 AM) Liters per Minute 0 L/min (07/15/22 10:38 AM) Mode of Delivery (Oxygen) Room air (07/15/22 10:38 AM) Blood pressure sites Arm, right (07/15/22 10:38 AM) Temperature Route Temporal (07/15/22 10:38 AM) Weight Obtained Via Standing scale (07/15/22 10:38 AM) Social History Social History Type Response Smoking Status Never smoker; Tobacco user i n household: No entered on: 08/29/17 Sex Care Team PersonnelName: Aileen White MD Address: [address] [place] [address]
--- OUTSIDE RECORDS SUMMARY | 2022-09-12 13:11 | XMS_ITS | Continuity of Care Document ---
:1994 Author Organization [facility] Endocrinology and D [facility] Address [address] [place] [address]- Care Team Providers Name Role Phone Daphnie Sheridan MD Primary Care Physician [place] [facility] [place] 04/15/22 - 05/15/22 [facility] [address] [place] [id number] Attending Physician: Latasha Lewis Admitting Physician: AdmtrLatasha Referring Physician: Admtr Ar8 Allergies, Adverse Reactions, Alerts No Known [...] 90 day, 08/19/21 13:08:00 EDT, PA 03/11/21-03/11/22; [id number], Supply, 186, cm, 05/06/21 9:20:00... Start Date: 08/19/21 Status: OrderedBaqsimi One Pack 3 mg nasal powder See Instructions, Use as directed, 3 mg for severe hypoglycemia., # 1 each, 6 Refills, Soft Stop, 02/18/21 13:15:00 EDT, [facility]/pharmacy #1230, Partial fill upon patient request [...] 0 Refills, Soft Stop, 05/06/21 10:22:00 EDT, [facility]/pharmacy #1230, Partial fill upon patient request [...] mL, 6 Refills, Maintenance, 11/27/20 8:41:00 EST, [facility]/pharmacy #1230, Partial fill upon patient request [...] mL, 3 Refills, Maintenance, 08/19/21 13:10:00 EDT, [facility]/pharmacy #1230, Partial fill upon patient request ifthe prescription is for a schedule II opioid drug... Start Date: 08/19/21 Status: OrderedPen [place], 31 G x 5 mm BD Ultra [...]
--- OUTSIDE RECORDS SUMMARY | 2022-09-12 13:11 | XMS_ITS | Continuity of Care Document ---
:1994 Author Organization [facility] Endocrinology and D [facility]l Address [address] [place] [address]- Care Team Providers Name Role Phone Daphnie Sheridan MD Primary Care Physician Encounter [facility] [place] Date(s): 04/30/21 - 05/30/21 [facility] Endocrinology and Diabetes [address] [place] [id number] Attending Physician: AdmtrLatasha Admitting Physician: Admtr, Ar8 Referring Physician: Admtr, Ar8 Allergies, Adverse Reactions, [...] day. E10.9, 03/19/21 10:02:00 EDT, PA 03/11/21-03/11/22; [id number], Supply, 183.4, cm, 01/24/20 14:38:00 ED... Start Date: 03/19/21 Status: OrderedBaqsimi One Pack 3 mg nasal powder See Instructions, Use as directed, 3 mg for severe hypoglycemia., # 1 each, 6 Refills, Soft Stop, 02/18/21 13:15:00 EDT, [facility]/pharmacy #1230, Partial fill upon patient request [...] 0 Refills, Soft Stop, 05/06/21 10:22:00 EDT, [facility]/pharmacy #1230, Partial fill upon patient request [...] mL, 6 Refills, Maintenance, 11/27/20 8:41:00 EST, [facility]/pharmacy #1230, Partial fill upon patient request [...] mL, 3 Refills, Maintenance, 11/27/20 15:35:00 EST, [facility]/pharmacy #1230, Partial fill upon patient request ifthe prescription is for a schedule II opioid drug... Start Date: 11/27/20 Status: OrderedPen [employer], 31 G x 5 mm BD Ultra [...]
--- OUTSIDE RECORDS SUMMARY | 2022-09-12 13:11 | XMS_ITS | Continuity of Care Document ---
:1994 Author Organization [facility]ology [facility] Address [address] [place] [address]- Care Team Providers Name Role Phone Daphnie Sheridan MD Primary Care Physician [place] [facility] [place](s): 02/11/21 - 03/13/21 [facility] Endocrinology and Diabetes [address] [place] [id number] Allergies, Adverse Reactions, Alerts Substance Reaction Severity Status NKA Active Immunizations Given and Recorded Vaccine Date Status Refusal Reason influenza virus vaccine, inactivated1 07/19/13 Given 1Result Comment: [07/19/2013] Pt tolerated procedure well. L deltoid Medications Baqsimi One Pack 3 mg nasal powder See Instructions, Use as directed, 3 mg for severe hypoglycemia., # 1 each, 6 Refills, Soft Stop, 02/18/21 13:15:00 EDT, [facility]/pharmacy #[id number], Partial fill upon patient request if the [...] mL, 6 Refills, Maintenance, 11/27/20 8:41:00 EST, [facility], Partial fill upon patient request [...] mL, 3 Refills, Maintenance, 11/27/20 15:35:00 EST, [facility], Partial fill upon patient request ifthe prescription is for a schedule II opioid drug... Start Date: 11/27/20 Status: OrderedPen [place], 31 G x 5 mm BD Ultra [...]
--- OUTSIDE RECORDS SUMMARY | 2022-09-12 13:11 | XMS_ITS | Continuity of Care Document ---
:1994 Author Organization [facility] Address [address] [id number]- Care Team Providers Name Role Phone Aileen White MD Primary Care Physician Encounter [facility] Date(s): 07/12/22 - 08/11/22 [facility] [address] [place] [address]- [place] Allergies, Adverse Reactions, Alerts No Known Allergies [...] 90 day, 06/28/22 9:20:00 EDT, PA 03/11/21-03/11/22; [id number], Supply, 186, cm, 04/15/22 15:55:00... Start Date: 06/28/22 Status: OrderedBaqsimi One Pack 3 mg nasal powder See Instructions, Use as directed, 3 mg for severe hypoglycemia., # 1 each, 6 Refills, Soft Stop, 02/18/21 13:15:00 EDT, [facility]/pharmacy #1230, Partial fill upon patient request if the prescription is fora schedule II opioid drug., 183.4, cm, 01/24/20 1... Start Date: 02/18/21 Status: OrderedConcerta 54 mg oral tablet, extended release 1 tablet = 54 mg, By Mouth, Daily in AM, Fill on or after 07/31/22, # 28 tablet, 0 Refills, Maintenance, 07/26/22 11:30:00 EDT, ER Tablet, [facility]/pharmacy #1230, 186, cm, 07/15/22 10:38:00 EDT, [...] 0 Refills, Soft Stop, 05/06/21 10:22:00 EDT, [facility]/pharmacy #1230, Partial fill upon patient request [...] mL, 3 Refills, Maintenance, 08/19/21 13:10:00 EDT, [facility]/pharmacy #1230, Partial fill upon patient request ifthe prescription is for a schedule II opioid drug... Start Date: 08/19/21 Status: OrderedPen [place], 31 G x 5 mm BD Ultra [...] information PersonnelName: Aileen White MD Address: Address: [address] [place] [address] [place] [address]- [place]
--- OUTSIDE RECORDS SUMMARY | 2022-09-12 13:11 | XMS_ITS | Continuity of Care Document ---
:1994 Author Organization [facility] Endocrinology and D [facility]l Address [address] [place] [address]- Care Team Providers Name Role Phone Daphnie Sheridan MD Primary Care Physician Encounter [facility] [place] Date(s): 04/21/20 - 06/18/20 [facility] Endocrinology and Diabetes [address] [place] [address] [facility] Attending Physician: Maria R Powers MD [...]
--- OUTSIDE RECORDS SUMMARY | 2022-09-12 13:11 | XMS_ITS | Continuity of Care Document ---
:1994 Author Organization Address [address] [place] [address]- Care Team Providers Name Role Phone Daphnie Sheridan MD Primary Care Physician En[place] [facility] [place] Date(s): 12/05/20 - 01/18/[address] [address] Attending Physician: Suzanne Gilbert MD Admitting Physician: [...] mL, 3 Refills, Maintenance, 11/27/20 8:56:00 EST, [facility]/pharmacy #1230, 183.4, cm, 01/24/20 14:38:00 EDT, Height [...] 6 Refills, Maintenance, 11/27/20 8:41:00 EST, [facility]/pharmacy #1230, Partial fill upon patient request [...] opioid drug... Start Date: 11/27/20 Status: OrderedPen [place], 31 G x 5 mm BD Ultra [...]
--- OUTSIDE RECORDS SUMMARY | 2022-09-12 13:11 | XMS_ITS | Continuity of Care Document ---
:1994 Author Organization [facility] Endocrinology and D chel Address [address] [place] [address]- Care Team Providers Name Role Phone Daphnie Sheridan MD Primary Care Physician Encounter [facility] Date(s): 12/09/20 - 01/08/21 [facility] Endocrinology and Diabetes [address] [place] [id number] Allergies, Adverse Reactions, Alerts Substance [...] mL, 3 Refills, Maintenance, 11/27/20 8:56:00 EST, [facility]/pharmacy #1230, 183.4, cm, 01/24/20 14:38:00 EDT, [...] mL, 6 Refills, Maintenance, 11/27/20 8:41:00 EST, [facility]/pharmacy #1230, Partial fill upon patient request [...] mL, 3 Refills, Maintenance, 11/27/20 15:35:00 EST, [facility]/pharmacy #1230, Partial fill upon patient request ifthe prescription is for a schedule II opioid drug... Start Date: 11/27/20 Status: OrderedPen [place], 31 G x 5 mm BD Ultra [...]
--- OUTSIDE RECORDS SUMMARY | 2022-09-12 13:11 | XMS_ITS | Continuity of Care Document ---
:1994 Author Organization [facility] Address [address] [place] [address]- Care Team Providers Name Role Phone Cindy KENDALL, Aileen Rivero Primary Care Physician En[place] [facility] [place] Date(s): 07/30/22 - 08/29/22 [facility] Endocrinology and Diabetes [address] [place] [id number] Allergies, Adverse Reactions, Alerts No Known Allergies [...] 90 day, 06/28/22 9:20:00 EDT, PA 03/11/21-03/11/22; [id number], Supply, 186, cm, 04/15/22 15:55:00... Start Date: [...] Refills, Maintenance, 08/23/22 10:06:00 EDT, ER Tablet, [facility]/pharmacy #1230, 186, cm, 07/27/22 9:38:00 EDT, Height, 78.3, kg, 05/06/21 9:20:00 EDT, Dry Weight Start Date: 08/23/22 Status: OrderedConcerta 54 mg oral tablet, extended release 1 tablet = 54 mg, By Mouth, Daily in AM, Fill on or after 07/31/22, # 28 tablet, 0 Refills, Hard Stop07/26/30 7:00:00 EDT, 07/26/22 11:30:00 EDT, [facility], cm, 07/15/22 10:38:00 EDT, Height, 78.3, kg, 05/06/21 9:20:00 EDT, . Start Date: 07/26/22 Stop Date: 07/26/30 Status: [...] Soft Stop, 05/06/21 10:22:00 EDT, [facility]/pharmacy #1230, Partial fill upon patient request [...] Refills, Maintenance, 08/19/21 13:10:00 EDT, [facility]/pharmacy #1230, Partial fill upon patient request ifthe prescription is for a schedule II opioid drug... Start Date: 08/19/21 Status: OrderedPen [place], 31 G x 5 mm BD Ultra [...] PersonnelName: Cindy KENDALL, Aileen Rivero Address: Address: [address] [place] [address] Adult [place], [place] [address]
--- OUTSIDE RECORDS SUMMARY | 2022-09-12 13:11 | XMS_ITS | Continuity of Care Document ---
:1994 Author Organization [facility] Address [address] [place] [address]- Care Team Providers Name Role Phone Daphnie Sheridan MD Primary Care Physician [place] [facility] [place](s): 12/31/20 - 01/30/[address] [id number] Attending Physician: Latasha Lewis Admitting Physician: Latasha Lewis Referring Physician: AdmtrLatasha Allergies, Adverse Reactions, Alerts [...] mL, 3 Refills, Maintenance, 11/27/20 8:56:00 EST, [facility]/pharmacy #1230, 183.4, cm, 01/24/20 14:38:00 [...] mL, 6 Refills, Maintenance, 11/27/20 8:41:00 EST, [facility]/pharmacy #1230, Partial fill upon patient [...] opioid drug... Start Date: 11/27/20 Status: OrderedPen [place], 31 G x 5 mm BD Ultra [...]
--- OUTSIDE RECORDS SUMMARY | 2022-09-12 13:11 | XMS_ITS | Continuity of Care Document ---
:1994 Author Organization [facility] Endocrinology and D [facility] Address [address] [place] [address]- Care Team Providers Name Role Phone Daphnie Sheridan MD Primary Care Physician En[place] [facility] [place] Date(s): 02/21/20 - 04/19/20 [facility] Endocrinology and Diabetes [address] [place] [address] [facility] Attending Physician: Maria R Powers MD Referring [...]
--- OUTSIDE RECORDS SUMMARY | 2022-09-12 13:11 | XMS_ITS | Continuity of Care Document ---
:1994 Author Organization [facility]inology [facility] Address [address] [place] [address]- Care Team Providers Name Role Phone Cindy KENDALL, Aileen Rivero Primary Care Physician Encounter [facility] Date(s): 07/19/22 - 08/18/22 [facility] Endocrinology and Diabetes [address] [place] [id number] Allergies, Adverse Reactions, Alerts No Known Allergies [...] 90 day, 06/28/22 9:20:00 EDT, PA 03/11/21-03/11/22; [id number], Supply, 186, cm, 04/15/22 15:55:00... Start Date: [...] Refills, Maintenance, 07/26/22 11:30:00 EDT, ER Tablet, [facility]/pharmacy #1230, 186, cm, 07/15/22 10:38:00 EDT, [...] 0 Refills, Soft Stop, 05/06/21 10:22:00 EDT, [facility]/pharmacy #1230, Partial fill upon patient request [...] mL, 3 Refills, Maintenance, 08/19/21 13:10:00 EDT, [facility]/pharmacy #1230, Partial fill upon patient request ifthe prescription is for a schedule II opioid drug... Start Date: 08/19/21 Status: OrderedPen [place], 31 G x 5 mm BD Ultra [...] information PersonnelName: Aileen White MD Address: Address: [address] [place] [address] [place] [address]-
--- OUTSIDE RECORDS SUMMARY | 2022-09-12 13:11 | XMS_ITS | Continuity of Care Document ---
:1994 Author Organization [facility] Endocrinology and D [facility]l Address [address] [place] [address]- Care Team Providers Name Role Phone Daphnie Sheirdan MD Primary Care Physician Encounter [facility] [place] Date(s): 04/21/20 - 04/28/20 [facility] Endocrinology and Diabetes [address] [place] [address] [facility] Attending Physician: Maria R Powers MD Allergies, Adverse Reactions, Alerts Substance Reaction [...]
--- OUTSIDE RECORDS SUMMARY | 2022-09-12 13:11 | XMS_ITS | Continuity of Care Document ---
:1994 Author Organization [facility] Address [address] [place] [address]- Care Team Providers Name Role Phone Daphnie Sheridan MD Primary Care Physician [place] [facility] [place] Date(s): 04/16/22 - 05/16/22 [facility] Endocrinology and Diabetes [address] [place] [id number] Allergies, Adverse Reactions, Alerts No Known [...] cm, 05/06/21 9:20:00 EDT, Height, 78.3, kg, 219:20:00 EDT, Dry Weight Start Date: 08/19/21 Status: OrderedACCU-CHEK GUIDE TEST STRIPS ACCU-CHEK GUIDE TEST STRIPS, See Instructions, # 750 each, Refills 3, Tot. Refills 3, Maintenance, Use to monitor blood glucose levels 8x per day. E10.9 90 day, 08/19/21 13:08:00 EDT, PA 03/11/21-03/11/22; [id number], Supply, 186, cm, 05/06/21 9:20:00... Start Date: 08/19/21 Status: OrderedBaqsimi One Pack 3 mg nasal powder See Instructions, Use as directed, 3 mg for severe hypoglycemia., # 1 each, 6 Refills, Soft Stop, 02/18/21 13:15:00 EDT, [facility]/pharmacy #1230, Partial fill upon patient request if [...] 0 Refills, Soft Stop, 05/06/21 10:22:00 EDT, [facility]/pharmacy #1230, Partial fill upon patient request if [...] mL, 3 Refills, Maintenance, 11/27/20 8:56:00 EST, [facility]/pharmacy #1230, 183.4, cm, 01/24/20 14:38:00 EDT, Height [...] mL, 6 Refills, Maintenance, 11/27/20 8:41:00 EST, [facility]/pharmacy #1230, Partial fill upon patient request if [...] mL, 3 Refills, Maintenance, 08/19/21 13:10:00 EDT, [facility]/pharmacy #1230, Partial fill upon patient request ifthe prescription is for a schedule II opioid drug... Start Date: 08/19/21 Status: OrderedPen [place], 31 G x 5 mm BD Ultra [...]
--- OUTSIDE RECORDS SUMMARY | 2022-09-12 13:11 | XMS_ITS | Continuity of Care Document ---
:1994 Author Organization [facility] Address [address] [place] [address]- Care Team Providers Name Role Phone Daphnie Sheridan MD Primary Care Physician En[place] [facility] [place] Date(s): 02/18/21 - 03/20/21 [facility] Endocrinology and Diabetes [address] [place] [id number] Allergies, Adverse Reactions, Alerts Substance Reaction Severity [...] day. E10.9, 03/19/21 10:02:00 EDT, PA 03/11/21-03/11/22; [id number], Supply, 183.4, cm, 01/24/20 14:38:00 ED... Start Date: 03/19/21 Status: OrderedBaqsimi One Pack 3 mg nasal powder See Instructions, Use as directed, 3 mg for severe hypoglycemia., # 1 each, 6 Refills, Soft Stop, 02/18/21 13:15:00 EDT, [facility]/pharmacy #1230, Partial fill upon [...] mL, 6 Refills, Maintenance, 11/27/20 8:41:00 EST, [facility]/pharmacy #1230, Partial fill upon [...] mL, 3 Refills, Maintenance, 11/27/20 15:35:00 EST, [facility]/pharmacy #1230, Partial fill upon patient request ifthe prescription is for a schedule II opioid drug... Start Date: 11/27/20 Status: OrderedPen [place], 31 G x 5 mm BD Ultra [...]
--- OUTSIDE RECORDS SUMMARY | 2022-09-12 13:11 | XMS_ITS | Continuity of Care Document ---
:1994 Author Organization [facility] Endocrinology and D chel Address [address] [place] [address]- Care Team Providers Name Role Phone Daphnie Sheridan MD Primary Care Physician Encounter [facility] Date(s): 12/01/20 - 12/31/20 [facility] Endocrinology and Diabetes [address] [place] [id number] Allergies, Adverse Reactions, Alerts Substance Reaction [...] mL, 3 Refills, Maintenance, 11/27/20 8:56:00 EST, [facility]/pharmacy #1230, 183.4, cm, 01/24/20 14:38:00 EDT, Height [...] 6 Refills, Maintenance, 11/27/20 8:41:00 EST, [facility]/pharmacy #1230, Partial fill upon patient request if [...] mL, 3 Refills, Maintenance, 11/27/20 15:35:00 EST, [facility]/pharmacy #1230, Partial fill upon patient request ifthe prescription is for a schedule II opioid drug... Start Date: 11/27/20 Status: OrderedPen [place], 31 G x 5 mm BD Ultra [...]
--- OUTSIDE RECORDS SUMMARY | 2022-09-12 13:11 | XMS_ITS | Continuity of Care Document ---
:1994 Author Organization [facility] Address [address] [place] [address]- Care Team Providers Name Role Phone Daphnie Sheridan MD Primary Care Physician [place] [facility] [place] Date(s): 08/18/21 - 09/17/21 [facility] Endocrinology and Diabetes [address] [place] [id number] Allergies, Adverse Reactions, Alerts Substance Reaction [...] 90 day, 08/19/21 13:08:00 EDT, PA 03/11/21-03/11/22; [id number], Supply, 186, cm, 05/06/21 9:20:00... Start Date: 08/19/21 Status: OrderedBaqsimi One Pack 3 mg nasal powder See Instructions, Use as directed, 3 mg for severe hypoglycemia., # 1 each, 6 Refills, Soft Stop, 02/18/21 13:15:00 EDT, [facility]/pharmacy #1230, Partial fill upon patient request if [...] 0 Refills, Soft Stop, 05/06/21 10:22:00 EDT, [facility]/pharmacy #1230, Partial fill upon patient request if [...] mL, 3 Refills, Maintenance, 11/27/20 8:56:00 EST, [facility]/pharmacy #1230, 183.4, cm, 01/24/20 14:38:00 EDT, Height [...] mL, 3 Refills, Maintenance, 08/19/21 13:10:00 EDT, [facility], Partial fill upon patient request ifthe prescription is for a schedule II opioid drug... Start Date: 08/19/21 Status: OrderedPen [place], 31 G x 5 mm BD Ultra [...]
--- OUTSIDE RECORDS SUMMARY | 2022-09-12 13:11 | XMS_ITS | Continuity of Care Document ---
:1994 Author Organization [facility] Address [address] [place] [address]- Care Team Providers Name Role Phone Cindy KENDALL, Aileen Rivero Primary Care Physician Encounter [facility] Date(s): 06/16/22 - 07/16/22 [facility] [address] [phone]- [place] Allergies, Adverse Reactions, Alerts No Known [...] 90 day, 06/28/22 9:20:00 EDT, PA 03/11/21-03/11/22; [id number], Supply, 186, cm, 04/15/22 15:55:00... Start Date: [...] 0 Refills, Soft Stop, 05/06/21 10:22:00 EDT, [facility]/pharmacy #1230, Partial fill upon patient request [...] E10.9, # 30 mL, 6 Refills, Maintenance, 07/15/22 14:58:00 EDT, [facility], Partial fill upon patient request if the prescription is for a schedule II opioid drug., 186, cm, 07/15/22 10:38:00 EDT, .. Start Date: 07/15/22 Status: Orderedminimed insulin pump minimed insulin pump, [...] opioid drug... Start Date: 08/19/21 Status: OrderedPen [place], 31 G x 5 mm BD Ultra Fine III See Instructions, # 30 each, Refills 6, Tot. Refills 6, Maintenance, Use to inject with insulin oncedaily, E10.9, 11/27/20 8:41:00 EST, Supply, 183.4, cm, 01/24/20 14:38:00 EDT, Height Start Date: 11/27/20 Status: Ordered Problem List Condition Effective Dates Status Health Status Informant Anxiety(Confirmed) Active ADHD (attention deficit hyperactivity Active disorder)(Confirmed) Depression(Confirmed) Active Diabetes mellitus(Confirmed) Active Type 1 diabetes mellitus(Confirmed) Active Social History Social History Type Response Smoking Status Never smoker; Tobacco user i n household: No entered on: 08/29/17 Sex Care Team PersonnelName: Cindy KENDALL, Aileen Rivero Address: [address] [place] [address] Adult [place], [place] [address]
--- OUTSIDE RECORDS SUMMARY | 2022-09-12 13:11 | XMS_ITS | Continuity of Care Document ---
:1994 Author Organization [facility] Address [address] [place] [address]- Care Team Providers Name Role Phone Aileen White MD Primary Care Physician Encounter [facility] Date(s): 06/16/22 - 08/25/22 [facility] [address] [place] [address]- Attending Physician: Aileen White MD Allergies, Adverse [...] 90 day, 06/28/22 9:20:00 EDT, PA 03/11/21-03/11/22; [id number], Supply, 186, cm, 04/15/22 15:55:00... Start Date: [...] Refills, Maintenance, 08/23/22 10:06:00 EDT, ER Tablet, [facility], 186, cm, 07/27/22 9:38:00 EDT, Height, 78.3, kg, 05/06/21 9:20:00 EDT, Dry Weight Start Date: 08/23/22 Status: OrderedConcerta 54 mg oral tablet, extended release 1 tablet = 54 mg, By Mouth, Daily in AM, Fill on or after 07/31/22, # 28 tablet, 0 Refills, Hard Stop07/26/30 7:00:00 EDT, 07/26/22 11:30:00 EDT, ER Tablet, [facility], 186, cm, 07/15/22 10:38:00 EDT, Height, [...] 0 Refills, Soft Stop, 05/06/21 10:22:00 EDT, [facility]/pharmacy #1230, Partial fill upon [...] opioid drug... Start Date: 08/19/21 Status: OrderedPen [place], 31 G x 5 mm BD Ultra [...] 08/29/17 Sex Patient Care team information PersonnelName: Cnidy KENDALL, Aileen Rivero Address: Address: [address] [place] [address] Adult [place], [place] [address]
--- OUTSIDE RECORDS SUMMARY | 2022-09-12 13:11 | XMS_ITS | Continuity of Care Document ---
:1994 Author Organization [facility] Endocrinology and D chel Address [address] [place] [address]- Care Team Providers Name Role Phone Daphnie Sheridan MD Primary Care Physician Encounter [facility] Date(s): 01/28/21 - 02/04/21 [facility] Endocrinology and Diabetes [address] [place] [phone] Attending Physician: Maria R Powers MD Allergies, [...] mL, 3 Refills, Maintenance, 11/27/20 8:56:00 EST, [facility]/pharmacy #1230, 183.4, cm, 01/24/20 14:38:00 EDT, Height [...] opioid drug... Start Date: 11/27/20 Status: OrderedPen [place], 31 G x 5 mm BD Ultra [...]
[2022-09-12] MEDS: Lidocaine HCl 1 % MPF 2 ML VIAL INFILTRATI ×2 (14:14)
== END 2022-09-12 14:48 | disposition home or self-care (01) ==
PROVIDERS: Emergency Provider Emergency Medicine
DX: S61.411A Laceration without foreign body of right hand, initial encounter (principal); W26.8XXA Contact with other sharp object(s), not elsewhere classified, initial encounter; Y93.9 Activity, unspecified; Y92.9 Unspecified place or not applicable; Y99.9 Unspecified external cause status
CPT/HCPCS: 12002; 73120; 99282; 99283